=== PATIENT | male | born 1965 | race Two or more races ===

== ENCOUNTER 2018-02-16 10:08 | Emergency (ER) | payer MEDICAID ==
[~2018-02-16] VITALS: Ht 165.1 cm; Wt 83.5 kg
[2018-02-16 12:25] VITALS: BP 128/86
[2018-02-16 12:56] LABS: Urine WBC None Seen /hpf (0 - 3)
[2018-02-16 13:10] LABS: Urine Bacteria NONE SEEN /hpf (None Seen); Urine Blood Negative /uL (Negative); Urine Specific Gravity 1.014 (1.001-1.035)
== END 2018-02-16 13:41 | disposition home or self-care (01) ==
LOC: ER 10:08
DX: R36.9 Urethral discharge, unspecified (principal); B99.9 Unspecified infectious disease
CPT/HCPCS: 81001; 81002

== ENCOUNTER 2019-08-06 15:16 | Emergency (ER) | payer SELFPAY ==
[~2019-08-06] VITALS: Ht 165.1 cm; Wt 83.9 kg
[2019-08-06 15:37] VITALS: BP 131/71
== END 2019-08-06 17:28 | disposition home or self-care (01) ==
LOC: ER 15:16
DX: S62.111A Displaced fracture of triquetrum [cuneiform] bone, right wrist, initial encounter for closed fracture (principal); S29.011A Strain of muscle and tendon of front wall of thorax, initial encounter; W01.0XXA Fall on same level from slipping, tripping and stumbling without subsequent striking against object, initial encounter; Y93.89 Activity, other specified; Y92.89 Other specified places as the place of occurrence of the external cause; Y99.8 Other external cause status
CPT/HCPCS: 29125; 71101; 73110

== ENCOUNTER 2019-08-11 17:16 | Emergency (ER) | payer SELFPAY ==
[~2019-08-11] VITALS: Ht 165.1 cm; Wt 81.6 kg
[2019-08-11 19:23] VITALS: BP 114/73
== END 2019-08-11 19:59 | disposition home or self-care (01) ==
LOC: ER 17:23
DX: Z00.00 Encounter for general adult medical examination without abnormal findings (principal)